=== PATIENT | male | born 1990 | race Two or more races ===

== ENCOUNTER 2018-04-23 16:54 | Emergency (ER) | payer MEDICAID ==
[~2018-04-23] VITALS: Ht 193 cm; Wt 102.1 kg
[2018-04-23 17:02] VITALS: BP 130/86
== END 2018-04-23 17:58 | disposition left against medical advice (07) ==
LOC: ER 16:59
DX: R51 Headache (principal); H53.8 Other visual disturbances; Z53.21 Procedure and treatment not carried out due to patient leaving prior to being seen by health care provider